=== PATIENT | male | born 1960 | race Caucasian/White ===

== ENCOUNTER → 2023-12-02 | Outpatient (CLI) | payer MEDICARE, BC | LOC: RAD 07:54 | DX: C64.2 Malignant neoplasm of left kidney, except renal pelvis (principal); N28.1 Cyst of kidney, acquired; Z90.5 Acquired absence of kidney ==

== ENCOUNTER → 2024-11-15 | Outpatient (CLI) | payer MEDICARE, BC ==
[~2024-11-15] MED LIST: PANTOPRAZOLE SO40 MG PO
== END ==
LOC: RAD 11:30
DX: C64.2 Malignant neoplasm of left kidney, except renal pelvis (principal); R91.8 Other nonspecific abnormal finding of lung field

== ENCOUNTER → 2024-11-16 | Outpatient (CLI) | payer MEDICARE, BC | LOC: RAD 10:32 | DX: C64.2 Malignant neoplasm of left kidney, except renal pelvis (principal); N28.1 Cyst of kidney, acquired; N40.2 Nodular prostate without lower urinary tract symptoms ==